=== PATIENT | female | born 1970 | race Caucasian/White ===

== ENCOUNTER 2019-09-09 04:59 | Inpatient (IN) | payer MEDICAID ==
[~2019-09-09] VITALS: Ht 144.8 cm; Wt 72.6 kg
[2019-09-09 05:01] VITALS: BP 134/88
--- NOTE | 2019-09-09 05:01 | NUR ---
PT AMBULATED TO BED #8
--- NOTE | 2019-09-09 05:05 | NUR ---
PT ARRIVED TO ED C/O LEFT BREAST PAIN X 3 WEEKS. PT RATES PAIN LEVEL 9/10 AND DESCRIBES IT SHARP, PULSATING PAIN. PAIN RADIATES TO THE LEFT ARM. PT STATES [place] WENT TO [place] LAST WEEK AND THEY PRESCRIBED HER ANTIBIOTICS BUT PT STATES IT HASNT BEEN WORKING. PT GOT MEDICATION ON TUESDAY. LEFT BREAST SHOWS SWELLING AND REDNESS AROUND THE NIPPLE. NO DEIVATED NIPPLE OTED BUT ON PALPATION THERE WAS A HARD BALL FEELING AROUND THE NIPPLE AND ALSO TENDERNESS. NO DRIANAGE OR BLOOD NOTED. VSS. PT ALSO SATETS SHE HAS A MIR. AT BEDSIDE. PMH: DM. ALEXANDER.
--- NOTE | 2019-09-09 05:20 | NUR ---
SEEN AND EXAMINED BY CHERYL WITH ORDERS AND CARRIED OUT.
[2019-09-09] MEDS ORDERED: VANCOMYCIN 1,000 MG in DEXTROSE 5% 250 ML IV ONE (05:25)
[2019-09-09] MEDS ORDERED: METF1000 PO (05:31)
[2019-09-09] MEDS ORDERED: VANCOMYCIN 1,000 MG VIAL ONE (05:33)
[2019-09-09] MEDS ORDERED: ACETAMINOPHEN 325 MG TAB PO PRN (05:40)
[2019-09-09] MEDS ORDERED: HYDROcodone/APAP 5/325 MG 1 TAB TAB PO PRN (05:40)
[2019-09-09] MEDS: NACL 0.9% 1,000 ML IV SCH ×3 (05:40→23:52)
[2019-09-09] MEDS ORDERED: DOCUSATE SODIUM 100 MG GELCAP PO PRN (05:40)
[2019-09-09] MEDS ORDERED: MORPHINE SULFATE 2 MG/ML SYR IVP PRN (05:40)
[2019-09-09] MEDS ORDERED: ONDANSETRON 4 MG/2 ML VIAL IM/IVP PRN (05:40)
[2019-09-09] MEDS ORDERED: VANCOMYCIN PER PHARMACY MC PRN ×2 (05:40→21:45)
[2019-09-09] MEDS ORDERED: KETOROLAC 30 MG/ML VIAL IVP ONE (05:40)
--- NOTE | 2019-09-09 05:45 | NUR ---
BLOOD DRAWN AND SENT TO LAB.PATIENT TOLERATED WELL.
--- NOTE | 2019-09-09 06:06 | NUR ---
MEDICATED PER ERMDS ORDER, PATIENT TOLERATED WELL.
--- NOTE | 2019-09-09 06:15 | NUR ---
XR AT BEDSIDE.
--- NOTE | 2019-09-09 06:30 | NUR ---
Patient will be admitted to care of DR. ROJAS. Admited to M/S. Will go to [facility]. Belongings list completed. Report to GABRIELLE SOLIMAN
--- NOTE | 2019-09-09 06:30 | NUR ---
RECD FROM ER VIA W/C. AWAKE, A/OX4. [place]ORE[place] SPEAKING. RESPIRATION EVEN AND UNLABORED. IV SALINE LOCK AT THE LEFT HAND G22 AND LEFT AC G22, PATENT AND INTACT. LEFT BREAST WITH REDNESS AROUND NIPPLE AND SLIGHT SWELLING, TENDER TO TOUCH. IV VANCOMYCIN STARTED IN ER. ABLE TO AMBULATE BY HERSELF. SKIN INTACT. DENIES PAIN 0/10. WILL ENDORSE TO AM NURSE FOR ADMISSION. AT THE BEDSIDE.
[2019-09-09 06:34] LABS: BASOPHILS % (AUTO) 0.5 % (0.0-2.0); EOSINOPHILS # (AUTO) 0.1 K/uL (0-0.4); EOSINOPHILS % (AUTO) 0.9 % (0.0-4.0); HEMATOCRIT 44.7 % (36-48); LYMPHOCYTES # (AUTO) 3.6 K/uL (2.5-16.5); LYMPHOCYTES % (AUTO) 48.9 % (20.5-51.1); MEAN CORPUSCULAR HEMOGLOBIN 30 pg (27-31); MEAN CORPUSCULAR HGB CONC 33 g/dL (33-37); MEAN CORPUSCULAR VOLUME 91.1 fL (80-94); MONOCYTES # (AUTO) 0.5 K/uL (0.8-1.0); MONOCYTES % (AUTO) 6.9 % (1.7-9.3); NEUTROPHILS # (AUTO) 3.2 K/uL (1.8-7.7); NEUTROPHILS % (AUTO) 42.8 % (42.2-75.2); PLATELET COUNT (AUTO) 157 K/uL (140-450); RED BLOOD CELL COUNT(AUTO) 4.91 MIL/uL (4.20-5.40); RED CELL DISTRIBUTION WIDTH 13.6 % (11.6-13.7); WHITE BLOOD COUNT (AUTO) 7.4 K/uL (4.8-10.8)
[2019-09-09 06:39] LABS: ANION GAP 14.3 (8-16); CARBON DIOXIDE 27.5 mmol/L (21-32); CREATININE 0.5 mg/dL (0.6-1.3); POTASSIUM 4.8 mmol/L (3.5-5.1)
[2019-09-09 06:44] LABS: ALBUMIN 3.7 g/dL (3.4-5.0); TOTAL BILIRUBIN 0.4 mg/dL (0.0-1.0)
--- NOTE | 2019-09-09 06:46 | NUR ---
Note sang in EDM - 09/09/19 at 0647 by [facility] Patient will be admitted to care of DR. ROJAS. Admited to M/S. Will go to [facility]. Belongings list completed. Report to GABRIELLE SOLIMAN.
[2019-09-09 06:54] LABS: MAGNESIUM 1.8 mg/dL (1.8-2.4); PHOSPHORUS 3.2 mg/dL (2.5-4.9); THYROID STIMULATING HORMONE 1.47 uIU/mL (0.34-3.74)
[2019-09-09 07:00] VITALS: BP 105/69
--- NOTE | 2019-09-09 07:00 | NUR ---
RECEIVED REPORT FROM NIGHT RN. PATIENT IS FULL CODE, NKA, CAME FROM HOME. TWO IV LINES IN PLACE- RT AC 22G AND LT HAND 22G. SKIN IS INTACT, CELLULITIS PRESENT TO LEFT BREAST. PATIENT IS AAOX4, NPO EXCEPT MEDS. FAMILY MEMBER IS AT BEDSIDE. PT IS AWAKE, NO COMPLAINTS AT THIS TIME. WILL REVIEW AND CONTINUE WITH PLAN OF CARE FOR THE DAY.
[2019-09-09 07:46] LABS: PROTHROMBIN TIME 9.1 secs (10.8-13.4)
[2019-09-09 08:47] LABS: BILIRUBIN,URINE NEGATIVE (NEGATIVE); BLOOD, URINE NEGATIVE (NEGATIVE); COLOR,URINE YELLOW (YELLOW); LEUKOCYTE ESTERASE ,URINE NEGATIVE (NEGATIVE); NITRITE, URINE NEGATIVE (NEGATIVE); PH,URINE 5.5 (5.0-9.0); UGLUCOSE 3+ (NEGATIVE)
[2019-09-09 08:53] LABS: APPEARANCE,URINE SLIGHTLY HAZY (CLEAR)
[2019-09-09 09:02] LABS: BARBITURATE, URINE NEG. ng/ml (NEG <=200); BENZODIAZEPINE, URINE NEG. ng/mL (NEG <=200); CANNABINOID, URINE NEG. ng/mL (NEG <=50); COCAINE, URINE NEG. ng/mL (NEG <=300); OPIATE, URINE NEG. ng/mL (NEG <=2000); PHENCYCLIDINE SCREEN,URINE NEG. ng/mL (NEG <=25)
[2019-09-09 09:21] LABS: RBC,URINE 0 /HPF (0-5); WBC,URINE 0-5 /HPF (0-5)
[2019-09-09 09:22] LABS: YEAST,URINE Few /HPF (None Seen)
[2019-09-09] MEDS ORDERED: DEXTROSE 50% 50 ML SYR IVP PRN (09:25)
[2019-09-09] MEDS ORDERED: FLUCONAZOLE 100 MG TAB PO SCH (10:15)
--- NOTE | 2019-09-09 10:45 | NUR ---
GIVEN DIFLUCAN PO. EDUCATED ON INDICATION AND SIDE EFFECTS. PATIENT TOLERATED WELL.
[2019-09-09] MEDS: BLOOD GLUCOSE MONITORING 1 DEV DEV FS SCH ×3 (11:13→20:38)
--- NOTE | 2019-09-09 11:15 | NUR ---
PATIENT IS LAYING ON BED, RESTING. NO SIGNS OF DISTRESS. C/O OF LEFT BREAST PAIN 3/10 BUT TOLERABLE. REFUSED PAIN MEDICATION. INFORMED PATIENT TO USE THE CALL LIGHT FOR ANY ASSISTANCE.
[2019-09-09] MEDS: AMPICILLIN/SULBACTAM 1.5 GM in NACL 0.9% 50 ML IV SCH ×2 (11:43→17:06)
--- NOTE | 2019-09-09 11:52 | NUR ---
HUNG UNASYN AT 100 ML/HR. BLOOD SUGAR 237. PATIENT REFUSED INSULIN, STATED SHE DOESN'T TAKE INSULIN AT HOME, JUST ORAL ANTI-DM MEDICATION. EDUCATED PATIENT AND FAMILY MEMBER ON HUMALOG PROTOCOL. PT AND FAMILY VERBALIZED UNDERSTANDING.
--- NOTE | 2019-09-09 13:15 | NUR ---
PATIENT IS LAYING IN BED, RESTING. NO SIGNS OF DISTRESS. DAUGHTER IS AT BEDSIDE.
--- NOTE | 2019-09-09 14:10 | NUR ---
PATIENT C/O INCREASED ITCHINESS TO LEFT BREAST. INFORMED DR HERRERA AND WAS TOLD SHE WOULD PUT AN ORDER IN FOR TOPICAL CREAM.
--- NOTE | 2019-09-09 15:21 | NUR ---
ADMINISTERED BENADRYL FOR ITCHINESS. EDUCATED PATIENT ON INDICATION AND SIDE EFFECTS. WILL CONTINUE TO MONITOR. BED IN LOW POSITION. CALL LIGHT WITHIN REACH.
[2019-09-09 16:00] VITALS: BP 111/64
--- NOTE | 2019-09-09 16:41 | NUR ---
BLOOD SUGAR OF 166. PT HAS BEEN REFUSING INSULIN COVERAGE STATING THAT SHE DOES NOT ADMINISTER INSULIN AT HOME.
[2019-09-09] MEDS: metFORMIN 500 MG TAB PO SCH (16:58)
[2019-09-09] MEDS: INSULIN LISPRO SLIDING SCALE 100 UNITS/ML VIAL SUBQ PRN ×2 (17:04→20:36)
--- NOTE | 2019-09-09 18:02 | NUR ---
PATIENT IS CURRENTLY EATING DINNER AT THIS MOMENT. NO SIGNS OF DISTRESS. BED IN LOW POSITION. CALL LIGHT IS WITHIN REACH
--- NOTE | 2019-09-09 18:26 | NUR ---
PATIENT IS OFF UNIT FOR CT-SCAN OF THE CHEST. DISCONNECTED PATIENT FROM IV.
--- NOTE | 2019-09-09 18:40 | NUR ---
PATIENT IS BACK FROM CT. RECONNECTED BACK TO THE IV. PATIENT IS SITTING IN BED, RESTING. NO SIGNS OF DISTRESS. RESPIRATIONS EVEN AND UNLABORED. ON ROOM AIR. IS AT BEDSIDE. BED IN LOW POSITION. CALL LIGHT IS WITHIN REACH. WILL ENDORSE PT. TO THE DRY CHAIN PULLER NURSE.
--- NOTE | 2019-09-09 19:00 | NUR ---
RECEIVED PT FROM RN PT MOHAWK SPEAKER AAOX4 AMBULATORY WITH LEFT BREAST CELLULITIS, IV ON RT AC INFUSING ERLL DENIES ANY PAIN OR DISCOMFORT, RELATIVES AT BED SIDE INITIAL ASSESSMENT DONE
[2019-09-09 20:00] VITALS: BP 114/66
--- NOTE | 2019-09-09 22:00 | NUR ---
PT AMBULATES TO THE RESTROOM NOT DISTRESS NOTED NOT FEVER NOT PAIN
[2019-09-09] MEDS ORDERED: VANCOMYCIN 1GM/DEXT 5% PREMIX 200 ML IV SCH (22:30)
[2019-09-10] VITALS: BP 125/83
[2019-09-10] MEDS ORDERED: VANCOMYCIN 1,000 MG VIAL ONE (00:19)
--- NOTE | 2019-09-10 02:00 | NUR ---
PT HAS BEEN MONITORING CLOSE NOT DISTRESS NOTED
--- NOTE | 2019-09-10 04:00 | NUR ---
SPONGE BATH GIVEN , LINEN CHANGED PT IS NPO AFTER MIDNIGHT FOR I AND D OF LEFT BREAST CELLULITIS
[2019-09-10] MEDS: BLOOD GLUCOSE MONITORING 1 DEV DEV FS SCH ×4 (06:32→20:40)
--- NOTE | 2019-09-10 06:32 | NUR ---
BLOOD SUGAR TEST 236 DR HERRERA RESIDENT ORDER TO HOLD INSULINE BECAUSE PT IS GOING TO SURGERY, PT WILL BE ENDORSED TO DAY SHIFT FOR CONTINUE OF CARE
[2019-09-10 07:03] LABS: BASOPHILS % (AUTO) 0.5 % (0.0-2.0); EOSINOPHILS # (AUTO) 0.1 K/uL (0-0.4); EOSINOPHILS % (AUTO) 1.1 % (0.0-4.0); HEMATOCRIT 40.6 % (36-48); HEMOGLOBIN 13.4 g/dL (12.0-16.0); LYMPHOCYTES # (AUTO) 2.4 K/uL (2.5-16.5); LYMPHOCYTES % (AUTO) 50.8 % (20.5-51.1); MEAN CORPUSCULAR HEMOGLOBIN 30 pg (27-31); MEAN CORPUSCULAR HGB CONC 33 g/dL (33-37); MEAN CORPUSCULAR VOLUME 90.8 fL (80-94); MONOCYTES # (AUTO) 0.3 K/uL (0.8-1.0); MONOCYTES % (AUTO) 7.3 % (1.7-9.3); NEUTROPHILS # (AUTO) 1.9 K/uL (1.8-7.7); NEUTROPHILS % (AUTO) 40.3 % (42.2-75.2); PLATELET COUNT (AUTO) 143 K/uL (140-450); RED BLOOD CELL COUNT(AUTO) 4.47 MIL/uL (4.20-5.40); RED CELL DISTRIBUTION WIDTH 13.3 % (11.6-13.7); WHITE BLOOD COUNT (AUTO) 4.7 K/uL (4.8-10.8)
--- NOTE | 2019-09-10 07:16 | NUR ---
REPORT RECEIVED BY RESTAURANT GREETER RN, PATIENT RESTING IN BED NO SIGNS OF DISTRESS NOTED. WILL CONTINUE TO MONITOR. Addendum: 09/10/19 at 0739 by Lamine Lizarraga RN SURGERY AT 1200. VANCOMYCIN RUNNING IN RIGHT ARM. REPORTS DISCOMFORT IN HER LEFT BREAST, SWELLING AND BUMPS NOTED ON LEFT BREAST. ITALIAN SPEAKING.
[2019-09-10 08:00] VITALS: BP 139/83
--- NOTE | 2019-09-10 08:21 | NUR ---
PATIENT HAS BEEN SCREENED AND CATEGORIZED MODERATE NUTRITION RISK. PATIENT WILL BE SEEN WITHIN 3-5 DAYS OF ADMISSION. 09/11/19 09/13/[address]
[2019-09-10 09:03] LABS: ANION GAP 10.9 (8-16); CARBON DIOXIDE 26.5 mmol/L (21-32); CREATININE 0.6 mg/dL (0.6-1.3); POTASSIUM 4.4 mmol/L (3.5-5.1)
--- NOTE | 2019-09-10 09:24 | NUR ---
WOUND CARE EVALUATION NOTE: REASON FOR EVALUATION: SURGICAL WOUNDS WOUND ASSESSMENT DONE WITH PRIMARY RN WITH SURGICAL WOUNDS. TRACH TO VENT. PT ON CONTINUOS O2 MONITORING. NO S/S OF DISTRESS. MORAN CATH IN PLACE. G-TUBE IN PLACE, SKIN IS WARM AND DRY BLE, HAIR GROWTH WITH DARKER PIGMENTATIONS. DORSAL PEDAL PULSES PRESENT AND NORMAL, CAPILLARY REFILLED <3 SEC. POC DISCUSSED WITH PRIMARY RN. INTEGUMENTARY: -TRACH AND GT STOMA IDALIA-SKIN DRY AND CLEAN -RIGHT THIGH 0.3X1CM BLOOD FILLED BLISTER WITH SKIN INTACT, TRANSPARENT DRESSING IN PLACE. -LEFT FOOT/TOES MULTIPLE SCABS WITH LARGEST TO LEFT DORSAL FOOT DRY BROWN SCAB. -MID BACK SURGICAL WOUND 5X1X0.8CM WOUND BED 100% GRANULATION TISSUE, MOIST, MO ODOR, IDALIA WOUND SKIN INTACT. -RIGHT POSTERIOR SHOULDER SURGICAL WOUND 5X2X0.5CM WOUND BED 100% GRANULATION TISSUE, MOIST, NO ODOR, IDALIA WOUND SKIN INTACT. RECOMMENDATION: -CONTINUE TO MONITOR BLISTER TO RIGHT THIGH AND CHANGE DRESSING PRN IF SOILING -RIGHT POSTERIOR SHOULDER AND MID BACK SURGICAL WOUND CLEANSE WITH NS, PACK WOUND WITH ADAPTIC DRESSING AND COVER WITH ABD PAD AND SECURE WITH TAPE , CHANGE Q M-W-F AND PRN IF SOILING -TURN AND REPOSITION PATIENT Q 2H -ASSESS AND MONITOR SKIN CONDITION DURING POSITION CHANGE -OFFLOAD BILATERAL HEELS BY PLACING PILLOWS UNDER CALVES AT ALL TIMES, UNLESS OTHERWISE CONTRAINDICATED -PRESSURE REDISTRIBUTION BY PLACING PILLOWS AND OFFLOADING SACRALCOCCYX -KEEP SKIN CLEAN AND DRY AT ALL TIMES. PLEASE CONTACT WOUND CARE NURSE FOR ANY QUESTION AND CHANGE OF WOUND CONDITION. Addendum: 09/10/19 at 0949 by Shun Arnett RN (Grace) ALL ABOVE CHARTING IS CHARTING ERROR/ WRONG PATIENT
--- NOTE | 2019-09-10 09:30 | NUR ---
PATIENT RESTING IN BED, NO SIGNS OF DISTRESS NOTED, NPO PER MD'S ORDERS IN PREPARATION FOR SX. WILL CONTINUE TO MONITOR.
[2019-09-10 09:57] LABS: MAGNESIUM 1.8 mg/dL (1.8-2.4); PHOSPHORUS 3.9 mg/dL (2.5-4.9)
[2019-09-10] MEDS: NACL 0.9% 1,000 ML IV SCH (10:00)
--- NOTE | 2019-09-10 11:01 | NUR ---
DC PLANNIN YO FEMALE PATIENT FROM HOME, WHO CAME IN DUE TO LEFT BREAST PAIN X 2 WEEKS. NO SIGNIFICANT MEDICAL HISTORY. INITIAL DIAGNOSIS OF LEFT BREAST CELLULITIS. ON ROOM AIR. BREAST U/S SHOWED HETEROGENOUS SUBAREOLAR STRUCTURE WHICH MAY REPRESENT AN ABSCESS OR UNDERLYING MASS. CHEST CT SHOWED CYSTIC 2.7CM STRUCTURE IN THE LEFT PERIHILAR REGION CNCERNING FOR ABSCESS AND CELLULITIS VS COMPLICATED CYST. ON VANCOMYCIN. SURGICAL CONSULT WITH DR. CARLTON RE: POSSIBLE ABSCESS. SCHEDULED FOR I&D OF LEFT BREAST ABSCESS/DEBRIDEMENT TODAY WITH DR. CARLTON. ON NPO. DC PLANNING PENDING ON THE PATIENT'S RESPONSE TO TREATMENT. Addendum: 09/11/19 at 1522 by Lynda Hines CM FOR DISCHARGE TO HOME TODAY, NO NEEDS.
--- NOTE | 2019-09-10 11:30 | NUR ---
BLOOD GLUCOSE CHECKED: 210, 4 UNITS OF INSULIN RECOMMENDED PER SLIDING SCALE. WILL FOLLOW UP WITH CAMILA FROM [place] REGARDING INSULIN COVERAGE. PATIENT AMBULATING IN ROOM WITH FAMILY MEMBER AT BEDSIDE. EDUCATED ON THE IMPORTANCE OF BLOOD GLUCOSE MAINTENANCE. WILL CONTINUE TO MONITOR.
[2019-09-10] MEDS: INSULIN LISPRO SLIDING SCALE 100 UNITS/ML VIAL SUBQ PRN ×3 (12:00→20:41)
--- NOTE | 2019-09-10 12:02 | NUR ---
4 UNITS OF INSULIN ADMINISTERED PER CAMILA FROM [place]. TOLERATED WELL. WILL CONTINUE TO MONITOR.
[2019-09-10] MEDS ORDERED: BUPIVACAINE-MPF 0.25% 30 ML VIAL INJ ONE (12:21)
--- NOTE | 2019-09-10 12:47 | NUR ---
PATIENT IS OFF THE UNIT EN ROUTE TO OR.
[2019-09-10] MEDS ORDERED: fentaNYL 0.05 MG/ML VIAL ONE (13:01)
[2019-09-10] MEDS ORDERED: PROPOFOL 200 MG/20 ML VIAL IV ONE (13:14)
[2019-09-10] MEDS ORDERED: DEXAMETHASONE 4 MG/ML VIAL ONE (13:14)
[2019-09-10] MEDS ORDERED: ONDANSETRON 4 MG/2 ML VIAL ONE (13:14)
[2019-09-10] MEDS ORDERED: DESFLURANE 240 ML BTL INH ONE (13:14)
[2019-09-10] MEDS ORDERED: KETOROLAC 30 MG/ML VIAL ONE (13:14)
[2019-09-10] MEDS ORDERED: ONDANSETRON 4 MG/2 ML VIAL IVP PRN (13:45)
[2019-09-10] MEDS ORDERED: HYDROmorphone 1 MG/ML AMP IVP PRN (13:45)
--- NOTE | 2019-09-10 14:35 | NUR ---
PATIENT IS BACK ON THE UNIT S/P I&D L BREAST ABSCESS UNDER GENERAL ANESTHESIA. EBL 20ML. BLOOD SUGAR AT 1255 OF 159, NO COVERAGE GIVEN. WILL MONITOR VITAL SIGNS Q15 PER PROTOCOL. PATIENT IS RESTING QUIETLY IN BED, VISIBLE CHEST RISE AND FALL, ON ROOM AIR. WILL CONTINUE TO MONITOR
[2019-09-10 16:00] VITALS: BP 120/71
[2019-09-10 16:02] LABS: CHOL/HDL RATIO 4.5 (1-4.5)
--- NOTE | 2019-09-10 16:35 | NUR ---
ASSESSING VITAL SIGNS Q15 MINUTES PER PROTOCOL FOR FIRST HOUR. VITALS ARE STABLE. PATIENT DENIES PAIN. COMPLAINS OF MILD HEADACHE, REFUSED PRN MEDICATIONS. WILL CONTINUE TO MONITOR.
[2019-09-10] MEDS: metFORMIN 500 MG TAB PO SCH (18:09)
[2019-09-10] MEDS: VANCOMYCIN 1,000 MG in DEXTROSE 5% 250 ML IV SCH (18:11)
--- NOTE | 2019-09-10 18:17 | NUR ---
BLOOD GLUCOSE 269. PATIENT REFUSED INSULIN COVERAGE BUT ACCEPTED ROUTING METFORMIN. PATIENT IS EATING DINNER AT BEDSIDE. NO SIGNS OF DISTRESS NOTED. PATIENT WAS OFFERED PAIN MEDICATION FOR SP I&D OF LEFT BREAST. WILL CONTINUE TO MONITOR.
--- NOTE | 2019-09-10 19:18 | NUR ---
REPORT OF PATIENT HANDED OVER TO ONCOMING WELT RANDER NURSE FOR CONTINUED CARE. PATIENT IS RESTING IN BED WITH FAMILY AT BEDSIDE. NO COMPLAINTS OF DISTRESS NOTED.
--- NOTE | 2019-09-10 19:20 | NUR ---
RECEIVED PT FROM TUNDE ANTHONY PT OCCITAN SPEAKER AAOX4 AMBULATORY S/P I AND D LEFT BREAST ABSCESS DENIES ANY PAIN DRESSING DRY AND INTACT , RELATIVES AT BED SIDE
[2019-09-10 20:00] VITALS: BP 117/69
--- NOTE | 2019-09-10 21:00 | NUR ---
;BLOOD SUGAR TEST 397 COVERAGE WITH 10 UNITS SUBQ HUMALOG FOLLOW PROTOCOL
--- NOTE | 2019-09-11 | NUR ---
LEFT BREAST DRESSING DRY AND INTACT DENIES ANY PAIN, PT AMBULATES TO THE RESTROOM VOIDING WELL
[2019-09-11] MEDS: NACL 0.9% 1,000 ML IV SCH (01:50)
--- NOTE | 2019-09-11 01:57 | NUR ---
PT IV ON RT AC INFUSING WELL, PT SLEEPING WELL NOT DISTRESS NOTED
[2019-09-11] MEDS: VANCOMYCIN 1,000 MG in DEXTROSE 5% 250 ML IV SCH (05:32)
[2019-09-11 05:36] LABS: BASOPHILS % (AUTO) 0.2 % (0.0-2.0); HEMATOCRIT 38.7 % (36-48); HEMOGLOBIN 12.9 g/dL (12.0-16.0); LYMPHOCYTES # (AUTO) 1.8 K/uL (2.5-16.5); LYMPHOCYTES % (AUTO) 22.5 % (20.5-51.1); MEAN CORPUSCULAR HEMOGLOBIN 30 pg (27-31); MEAN CORPUSCULAR HGB CONC 33 g/dL (33-37); MEAN CORPUSCULAR VOLUME 90.3 fL (80-94); MONOCYTES # (AUTO) 0.4 K/uL (0.8-1.0); MONOCYTES % (AUTO) 4.8 % (1.7-9.3); NEUTROPHILS # (AUTO) 5.8 K/uL (1.8-7.7); NEUTROPHILS % (AUTO) 72.5 % (42.2-75.2); PLATELET COUNT (AUTO) 152 K/uL (140-450); RED BLOOD CELL COUNT(AUTO) 4.28 MIL/uL (4.20-5.40); RED CELL DISTRIBUTION WIDTH 13.1 % (11.6-13.7)
[2019-09-11] MEDS: BLOOD GLUCOSE MONITORING 1 DEV DEV FS SCH ×2 (05:56→12:03)
[2019-09-11] MEDS: INSULIN LISPRO SLIDING SCALE 100 UNITS/ML VIAL SUBQ PRN (05:58)
--- NOTE | 2019-09-11 06:00 | NUR ---
BLOOD SUGAR TEST 239 COVERAGE WITH 4 UNITS SUBQ HUMALOG FOLLOW PROTOCOL
--- NOTE | 2019-09-11 06:45 | NUR ---
PT WILL BE ENDORSED TO DAY SHIFT NURSE FOR CONTINUE OF CARE
[2019-09-11 06:58] LABS: ANION GAP 13.1 (8-16); CARBON DIOXIDE 25.9 mmol/L (21-32); CREATININE 0.5 mg/dL (0.6-1.3)
--- NOTE | 2019-09-11 07:23 | NUR ---
RECEIVED REPORT FROM DIRECTORY CLERK NURSE, SHE IS STABLE NO SIGNS OF DISTRESS NOTED, IV IS PATENT AND FLUSHED WITH NS. [place] SPEAKING. S/P LEFT BREAST I&D 09/10/2019, NO COMPLAINTS OF PAIN AT THIS TIME. WILL CONTINUE TO MONITOR.
[2019-09-11 08:00] VITALS: BP 113/68
--- NOTE | 2019-09-11 10:50 | NUR ---
PROVIDED WOUND CARE PER DR. CARLTON REQUEST. TOOK PHOTO AND MEASURED WOUND. CHANGED DRESSING PROVIDED EDUCATION ON WOUND CARE FOR WHEN PT IS AT HOME. UPDATED PT ON PLAN FOR DISCHARGE TODAY, PT STATED HER FAMILY CAN PICK HER UP AT 1500. INFORMED AND CHARGE NURSE THAT PT IS WAITING FOR FAMILY TO PICK HER UP.
[2019-09-11] MEDS ORDERED: LACT1CAP21 PO (11:26)
[2019-09-11] MEDS ORDERED: DOCU-299 PO (11:26)
[2019-09-11] MEDS ORDERED: HYDR-5122 PO (11:26)
[2019-09-11] MEDS ORDERED: CEPH-1019 PO (11:26)
--- NOTE | 2019-09-11 13:00 | NUR ---
BLOOD GLUCOSE 271, 6 UNITS OF INSULIN ADMINISTERED. PATIENT TOLERATED WELL. TYLENOL ADMINISTERED FOR MILD PAIN. PATIENT IS EATING LUNCH, TALKING WITH ROOMMATE. WILL CONTINUE TO MONITOR. PREPARING FOR DISCHARGE TODAY AROUND 1500.
--- NOTE | 2019-09-11 15:30 | NUR ---
EDUCATED PATIENT ON PROPER WOUND CARE, REINFORCED SELF AWARENESS TO PREVENT POTENTIAL INJURY, AND PAIN. ENCOURAGED TO COME TO STAFF IF QUESTIONS ARISE. WILL CONTINUE TO MONITOR.
--- NOTE | 2019-09-11 16:18 | NUR ---
REMOVED IV TIP INTACT. REMOVED ID BAND. REVIEWED DISCHARGE INSTRUCTIONS WITH PATIENT AND PATIENTS DAUGHTER. PTS DAUGHTER SPOKE ADEQUATE NAMIBIAN AND UNDERSTOOD ALL THE DISCHARGE INFORMATION. REVIEWED DRESSING CHANGE INSTRUCTIONS WITH PATIENTS DAUGHTER. PROVIDED FOLLOW UP APPOINTMENT WITH PT DAUGHTER FOR DR. CARLTON 09/24 PROVIDED PRESCRIPTIONS TO BE PICKED UP AT PATIENTS PREFERRED PHARMACY. PT AMBULATED OFF THE UNIT WITH ALL PERSONAL BELONGINGS PROVIDED WOUND CARE SUPPLIES FOR PATIENT WOUND DRESSING CHANGES. PT AND FAMILY HAD NO FURTHER QUESTIONS.
== END 2019-09-11 16:21 | disposition home or self-care (01) | DRG 385 ==
LOC: MED 04:59 → MTU 05:40
PROVIDERS: ADMIT General Practice; ATTEND General Practice
PROC: 0H9U0ZZ Drainage of Left Breast, Open Approach (ICD-10-PCS; 2019-09-10)
PROC: 0JB60ZZ Excision of Chest Subcutaneous Tissue and Fascia, Open Approach (ICD-10-PCS; principal; 2019-09-10 12:30)
DX: N61.0 Mastitis without abscess (principal); D68.59 Other primary thrombophilia; N61.1 Abscess of the breast and nipple; R74.0 Nonspecific elevation of levels of transaminase and lactic acid dehydrogenase [LDH]; E11.9 Type 2 diabetes mellitus without complications; Z98.891 History of uterine scar from previous surgery; Z79.84 Long term (current) use of oral hypoglycemic drugs; Z83.3 Family history of diabetes mellitus
CPT/HCPCS: 36415; 71045; 71250; 76641; 76705; 80048; 80053; 80305; 81001; 81025; 82948; 83036; 83605; 83735; 83880; 84100; 84443; 85025; 85610; 85730; 87040; 87070; 87075; 87081; 87086; 87205; 88304; 96372; 99285; J0295; J0696; J1100; J1815; J1885; J2270; J2405; J2704; J3010; J3370; J3490; J7030; J7060; Q0092; Q0163

== ENCOUNTER 2019-09-12 15:15 | Emergency (ER) | payer MEDICAID ==
[~2019-09-12] VITALS: Ht 144.8 cm; Wt 72.6 kg
[~2019-09-12 15:15] MED LIST: CEPH-1019 PO; DOCU-299 PO; HYDR-5122 PO; LACT1CAP21 PO; METF1000 PO
[2019-09-12 15:23] VITALS: BP 156/92
--- NOTE | 2019-09-12 15:27 | NUR ---
PT TRIAGED, SENT BACK TO [facility]
--- NOTE | 2019-09-12 15:45 | NUR ---
PT AMBULATED TO BED 12.
--- NOTE | 2019-09-12 15:49 | NUR ---
48 Y/O FEMALE PRESENTED WITH C/C OF PAIN ON L NIPPLE S/P ABSCESS PROCEDURE DONE YESTERDAY AT [facility]. PER PT L NIPPLE AREA IS BECOMING HARDENED AND PAINFUL, SCARED THAT WHEN GAUZE IS REMOVED IT MIGHT BECOME WORSE. PT HERE FOR A RECHECK. PT NKA. MEDICAL HX OF DM. DM MEDS ON REG BASIS. LAST ORAL INTAKE TODAY TOLERATED WELL. SIDE RAIL X1. FAMILY AT BEDSIDE.
--- NOTE | 2019-09-12 16:05 | NUR ---
Patient being evaluated by NARCISO GRIFFIN at bedside.
[2019-09-12] MEDS ORDERED: KETOROLAC 30 MG/ML VIAL IM ONE (16:25)
[2019-09-12 16:45] VITALS: BP 145/99
--- NOTE | 2019-09-12 16:45 | NUR ---
Patient discharged with v/s stable. Written and verbal after care instructions given and explained. Patient verbalized understanding. Ambulatory with steady gait. All questions addressed prior to discharge. Advised to follow up with PMD.
== END 2019-09-12 16:45 | disposition home or self-care (01) ==
LOC: MED 15:15
DX: Z48.00 Encounter for change or removal of nonsurgical wound dressing (principal); M79.10 Myalgia, unspecified site; E11.9 Type 2 diabetes mellitus without complications; Z79.899 Other long term (current) drug therapy; Z79.84 Long term (current) use of oral hypoglycemic drugs; Z98.890 Other specified postprocedural states
CPT/HCPCS: 96372; 99283; J1885

== ENCOUNTER 2019-09-13 14:03 | Emergency (ER) | payer MEDICAID ==
[~2019-09-13] VITALS: Ht 167.6 cm; Wt 72.6 kg
[2019-09-13 14:07] VITALS: BP 154/94
--- NOTE | 2019-09-13 14:13 | NUR ---
Patient ambulated to bed 4 with family. RN evaluating patient at bedside.
--- NOTE | 2019-09-13 14:19 | NUR ---
PT STATES SHE HAS WOUND ON LT BREAST PACKED W/ GAUZE THAT NEEDS TO BE CHANGED DAILY. LT BREAST COVERED BY DRESSING W/O DRAINAGE NOTICED. PATIENT STATES PAIN OF 6/10 AT THIS TIME; VSS; PATIENT POSITIONED FOR COMFORT; HOB ELEVATED; BEDRAILS UP X1; BED DOWN. ER MD MADE AWARE OF PT STATUS.
--- NOTE | 2019-09-13 14:41 | NUR ---
PT'S WOUND ON LEFT BREAST INNER EDGE OF AREOLA HAS BEEN CHECKED. PARTIAL THICKNESS OPENED WOUND W/O DRAINAGE NOTICED. CHANGED WOUND DRESSINGS AT THIS TIME.
--- NOTE | 2019-09-13 15:08 | NUR ---
Dr. Paulino is evaluating the patient at bedside.
[2019-09-13 15:13] VITALS: BP 145/89
--- NOTE | 2019-09-13 15:13 | NUR ---
Patient discharged with v/s stable and discharged by Dr. Paulino. Patient verbalized understanding. Ambulatory with steady gait. All questions addressed prior to discharge. Advised to follow up with PMD.
== END 2019-09-13 15:13 | disposition home or self-care (01) ==
LOC: MED 14:03
DX: Z48.00 Encounter for change or removal of nonsurgical wound dressing (principal); N61.0 Mastitis without abscess; E11.9 Type 2 diabetes mellitus without complications; Z79.899 Other long term (current) drug therapy; Z79.84 Long term (current) use of oral hypoglycemic drugs
CPT/HCPCS: 99282

== ENCOUNTER 2019-09-18 13:44 | Emergency (ER) | payer MEDICAID ==
[~2019-09-18] VITALS: Ht 147.3 cm; Wt 70.3 kg
[2019-09-18 14:25] VITALS: BP 122/79
--- NOTE | 2019-09-18 15:08 | NUR ---
49 Y/O FEMALE PRESENT TO ER FOR WOUND CHECK TO LT BREAST. PT STATES SHE HAD FLUID REMOVED FROM LT BREAST X1 WEEK AGO, AND WENT TO CLINIC YESTERDAY AND THEY TOLD HER SHE NEEDED TO COME DAILY TO GET DRESSING CHANGED. PT STATES 8/10 ACHING PAIN TO LT BREAST AT INCISION SITE. PT STATES WHITE AND BLOODY DRAINAGE. DENIES FOUL SMELL. RR EVEN AND UNLABORED. PT CALM AND PLEASANT SITTING IN CHD. VSS MEDHX: DM, HTN ALLERGIES: NKA
--- NOTE | 2019-09-18 16:34 | NUR ---
Carolee domínguez in [facility] - 09/18/19 at 1659 by [facility] YOHAN Pal FROM CH D TO BED 1.
--- NOTE | 2019-09-18 16:39 | NUR ---
RECEIVED PATIENT TO BED 1. PATIENT STATES SHE HAS PAIN 8/, TOOK NORCO AT HOME AT 1300. PATIENT POSITIONED BED FOR COMFORT, BED LOWERED TO LOWEST POSITION, SIDE RAIL X1 IN PLACE.
[2019-09-18] MEDS ORDERED: HYDROcodone/APAP 5/325 MG 1 TAB TAB PO ONE (17:20)
[2019-09-18] MEDS ORDERED: ONDANSETRON 4 MG ODT PO ONE (17:20)
--- NOTE | 2019-09-18 17:20 | NUR ---
ASSISSTED NARCISO PIERRE WITH REMOVING DRESSING AND PACKING IN PLACE ON LEFT BREAST AND APPLYING NEW PACKING AND DRESSING. PATIENT TOLERATED PROCEDURE WELL.
[2019-09-18 17:38] VITALS: BP 118/72
== END 2019-09-18 17:38 | disposition home or self-care (01) ==
LOC: MED 13:44
DX: E11.9 Type 2 diabetes mellitus without complications (principal); I10 Essential (primary) hypertension; Z48.89 Encounter for other specified surgical aftercare; Z79.84 Long term (current) use of oral hypoglycemic drugs; Z79.899 Other long term (current) drug therapy
CPT/HCPCS: 99283; Q0162

== ENCOUNTER 2019-09-19 12:30 | Emergency (ER) | payer MEDICAID ==
[~2019-09-19] VITALS: Ht 144.8 cm; Wt 72.6 kg
--- NOTE | 2019-09-19 12:40 | NUR ---
PATIENT AMBULATED TO BED 5 AT THIS TIME.
[2019-09-19 12:42] VITALS: BP 149/82
--- NOTE | 2019-09-19 13:08 | NUR ---
49/F TO ED FOR A WOUND DRESSING CHANGE TO THE L BREAST. +DRAINGE NOTED. IN BED FOR MD WEATHERS.
--- NOTE | 2019-09-19 13:19 | NUR ---
DR. AGARWAL EVALUATING PT AT BEDSIDE.
[2019-09-19 13:49] VITALS: BP 149/82
== END 2019-09-19 13:49 | disposition home or self-care (01) ==
LOC: MED 12:30
DX: N61.1 Abscess of the breast and nipple (principal); E11.9 Type 2 diabetes mellitus without complications; I10 Essential (primary) hypertension; Z79.84 Long term (current) use of oral hypoglycemic drugs; Z79.899 Other long term (current) drug therapy
CPT/HCPCS: 99282

== ENCOUNTER 2021-10-14 07:23 | Emergency (ER) | payer MEDICAID ==
[~2021-10-14] VITALS: Ht 149.9 cm; Wt 70.3 kg
[2021-10-14 07:30] VITALS: BP 156/112
--- NOTE | 2021-10-14 08:12 | NUR ---
PATIENT AMBULATED WITH STEADY GAIT TO BED 8.
--- NOTE | 2021-10-14 08:21 | NUR ---
51/F BIB SELF WITH C/O VAGINAL PAIN, PELVIC PAIN, DYSURIA AND HEMATURIA. PATIENT STATES SYMPTOMS BEGAN YESTERDAY BUT WORSENED THROUGHOUT THE NIGHT. REPORTS TAKING TYLENOL WITH MILD RELIEF, DENIES FEVERS, N/V/D.
--- NOTE | 2021-10-14 08:37 | NUR ---
51 Y/O F C/O PAIN WHILE URINATING FOR X 2 DAYS 05/26. LOWER VAGINAL PAIN. PT ALSO C/O BLOOD IN URINE TWICE TODAY. PT HAS NO PERIODS FOR THE LAST 3 YEARS AND HAD TUBALIGATION 18 YEARS AGO. CATHERINE PMH: DM
--- NOTE | 2021-10-14 08:37 | NUR ---
DR STANLEY AT BEDSIDE.
[2021-10-14] MEDS ORDERED: SULF-59 PO (09:21)
--- NOTE | 2021-10-14 09:36 | NUR ---
Patient discharged with v/s stable. Written and verbal after care instructions given and explained. Patient alert, oriented and verbalized understanding of instructions. Ambulatory with steady gait. All questions addressed prior to discharge. ID band removed. Patient advised to follow up with PMD. Rx of SULFAMETHOXAZOLE/TRIMETHOPRIM given. Opportunity to ask questions provided and answered.
== END 2021-10-14 09:36 | disposition home or self-care (01) ==
LOC: MED 07:23
DX: N39.0 Urinary tract infection, site not specified (principal)
CPT/HCPCS: 81002; 81025; 99283